=== PATIENT | male | born 1950 | race Caucasian/White ===

== ENCOUNTER 2016-08-06 14:12 | Emergency (ER) | payer MEDICARE, OTHER ==
[2016-08-01 11:36] VITALS: BMI 30.1
[~2016-08-06 14:12] MED LIST: LACTATED RINGERS 1,000 ML IV SCH; LIDOCAINE 1% 20 ML VIAL (10MG/ML) FOR IV START INTRADERMA PRN; hydrALAZINE HCL 20 MG/ML 1 ML VIAL IVP STA
--- NOTE | 2016-08-06 14:30 | ED ---
General Adult HPI - General Chief complaint: Recheck/Abnormal Lab/Rx Time Seen by Provider: 08/06/16 14:18 Source: patient, RN notes reviewed Mode of arrival: wheelchair Limitations: no limitations - History of Present Illness Initial comments: 66-year-old male present emergency Department from outpatient surgery for hypertension. Patient was scheduled for Clostridium difficile the by Dr. Gage today but found to have a blood pressure 220/100. Patient states that he does not take any medication for blood pressure until he does not see his primary care physician on it regular. States on his last visit his blood pressure was 170/90 discussed medication and watch. Patient has no complaints at this time. Patient denies chest pain, shortness breath, headache, dizziness , nausea vomiting diarrhea constipation. Patient did take the prep yesterday which tolerated well for his colonoscopy and has no complaints today. Patient does admit to marijuana use, alcohol use. - Related Data Previous Rx's Medication Instructions Recorded Lisinopril [Zestril] 10 mg PO DAILY #14 tab 08/06/16 Allergies Allergy/AdvReac Type Severity Reaction Status Date / Time No Known Allergies Allergy Verified 08/06/16 14:20 Review of Systems ROS Statement: Those systems with pertinent positive or pertinent negative responses have been documented in the HPI. ROS Other: All systems not noted in ROS Statement are negative. Past Medical History Past Medical History: Cancer History of Any Multi-Drug Resistant Organisms: None Reported Past Surgical History: Joint Replacement Additional Past Surgical History / Comment(s): LT TKA. SKIN CANCER REMOVED FROM NOSE. SPLEENECTOMY. COLONOSCOPY Past Anesthesia/Blood Transfusion Reactions: No Reported Reaction Past Psychological History: No Psychological Hx Reported Smoking Status: Former smoker Past Alcohol Use History: Daily Additional Past Alcohol Use History / Comment(s): 1974 Past Drug Use History: Marijuana Additional Drug Use History / Comment(s): USES MARIJUANA 3 TIMES WEEKLY - Past Family History Father Family Medical History: Cancer Brother(s) Family Medical History: Cancer General Exam Limitations: no limitations General appearance: alert, in no apparent distress Head exam: Present: atraumatic, normocephalic, normal inspection Neck exam: Present: normal inspection, full ROM. Absent: tenderness, meningismus, lymphadenopathy Respiratory exam: Present: normal lung sounds bilaterally. Absent: respiratory distress, wheezes, rales, rhonchi, stridor Cardiovascular Exam: Present: regular rate, normal rhythm, normal heart sounds. Absent: systolic murmur, diastolic murmur, rubs, gallop, clicks GI/Abdominal exam: Present: soft, normal bowel sounds. Absent: distended, tenderness, guarding, rebound, rigid Neurological exam: Present: alert, oriented X3, CN II-XII intact Skin exam: Present: warm, dry, intact, normal color. Absent: rash Course Vital Signs 08/06/16 08/06/16 08/06/16 13:19 13:26 13:42 Temperature 97.6 F 97.6 F Pulse Rate Pulse Rate [ 82 82 82 Pulse Oximetery ] Respiratory 18 18 18 Rate Blood Pressure Blood Pressure 217/117 217/117 199/102 [Right Arm] O2 Sat by Pulse 97 97 95 Oximetry 08/06/16 08/06/16 08/06/16 13:55 14:16 15:07 Temperature 98.3 F Pulse Rate 81 86 Pulse Rate [ 79 Pulse Oximetery ] Respiratory 18 18 16 Rate Blood Pressure 203/92 182/99 Blood Pressure 173/89 [Right Arm] O2 Sat by Pulse 97 95 95 Oximetry 08/06/16 08/06/16 15:18 15:38 Temperature Pulse Rate 84 92 Pulse Rate [ Pulse Oximetery ] Respiratory 18 18 Rate Blood Pressure 173/93 165/83 Blood Pressure [Right Arm] O2 Sat by Pulse 95 98 Oximetry EKG Findings - EKG Comments: EKG Findings:: EKG performed at 14:22 normal sinus rhythm with a rate of 87. IL interval 186, QS duration 94 QT/QTC 392/471 Medical Decision Making - Medical Decision Making 66-year-old male presented from outpatient for hypertension. Patient's blood pressure is improved this time. Patient was started on lisinopril 10 mg. Patient follow-up with Dr. Crockett in one to 2 days. Return parameters were discussed. Patient my blood pressure at home. - Lab Data Result diagrams: 08/06/16 14:20 08/06/16 14:20 Lab Results 08/06/16 08/06/16 08/06/16 Range/Units 14:20 14:20 14:20 WBC 8.3 (3.8-10.6) k/uL RBC 5.35 (4.30-5.90) m/uL Hgb 17.8 H (13.0-17.5) gm/dL Hct 53.1 H (39.0-53.0) % MCV 99.1 (80.0-100.0) fL MCH 33.2 (25.0-35.0) pg MCHC 33.5 (31.0-37.0) g/dL RDW 13.1 (11.5-15.5) % Plt Count 176 (150-450) k/uL Neutrophils % (Manual) 80.0 % Lymphocytes % (Manual) 9.0 % Monocytes % (Manual) 9.0 % Eosinophils % (Manual) 2.0 % Neutrophils # (Manual) 6.6 (1.3-7.7) k/uL Lymphocytes # (Manual) 0.7 L (1.0-4.8) k/uL Monocytes # (Manual) 0.7 (0-1.0) k/uL Eosinophils # (Manual) 0.2 (0-0.7) k/uL Nucleated RBCs 0 (0-0) /100 WBC RBC Morphology Normal Sodium 138 (137-145) mmol/L Potassium 4.3 (3.5-5.1) mmol/L Chloride 99 (98-107) mmol/L Carbon Dioxide 25 (22-30) mmol/L Anion Gap 14 mmol/L BUN 19 (9-20) mg/dL Creatinine 0.83 (0.66-1.25) mg/dL Est GFR (MDRD) Af Amer >60 (>60 ml/min/1.73 sqM) Est GFR (MDRD) Non-Af >60 (>60 ml/min/1.73 sqM) Glucose 102 H (74-99) mg/dL Calcium 9.6 (8.4-10.2) mg/dL Total Bilirubin 2.2 H (0.2-1.3) mg/dL AST 56 (17-59) U/L ALT 58 (21-72) U/L Alkaline Phosphatase 64 (38-126) U/L Troponin I <0.012 (0.000-0.034) ng/mL Total Protein 7.8 (6.3-8.2) g/dL Albumin 4.1 (3.5-5.0) g/dL Lipase (23-300) U/L 08/06/16 Range/Units 14:20 WBC (3.8-10.6) k/uL RBC (4.30-5.90) m/uL Hgb (13.0-17.5) gm/dL Hct (39.0-53.0) % MCV (80.0-100.0) fL MCH (25.0-35.0) pg MCHC (31.0-37.0) g/dL RDW (11.5-15.5) % Plt Count (150-450) k/uL Neutrophils % (Manual) % Lymphocytes % (Manual) % Monocytes % (Manual) % Eosinophils % (Manual) % Neutrophils # (Manual) (1.3-7.7) k/uL Lymphocytes # (Manual) (1.0-4.8) k/uL Monocytes # (Manual) (0-1.0) k/uL Eosinophils # (Manual) (0-0.7) k/uL Nucleated RBCs (0-0) /100 WBC RBC Morphology Sodium (137-145) mmol/L Potassium (3.5-5.1) mmol/L Chloride (98-107) mmol/L Carbon Dioxide (22-30) mmol/L Anion Gap mmol/L BUN (9-20) mg/dL Creatinine (0.66-1.25) mg/dL Est GFR (MDRD) Af Amer (>60 ml/min/1.73 sqM) Est GFR (MDRD) Non-Af (>60 ml/min/1.73 sqM) Glucose (74-99) mg/dL Calcium (8.4-10.2) mg/dL Total Bilirubin (0.2-1.3) mg/dL AST (17-59) U/L ALT (21-72) U/L Alkaline Phosphatase (38-126) U/L Troponin I (0.000-0.034) ng/mL Total Protein (6.3-8.2) g/dL Albumin (3.5-5.0) g/dL Lipase 22 L (23-300) U/L Disposition Clinical Impression: Hypertension Disposition: HOME SELF-CARE Condition: Stable Instructions: Hypertension (ED) Additional Instructions: Follow-up with primary care physician for recheck.Please return to the Emergency Department if symptoms worsen or any other concerns. Prescriptions: Lisinopril [Zestril] 10 mg PO DAILY #14 tab Time of Disposition: 15:42
[2016-08-06 14:42] LABS: Aty Lym Flag Slight; CH 33.6; CHCM 34.1; HCT 53.1 % (39.0-53.0); HDW 2.29; HGB 17.8 gm/dL (13.0-17.5); MCH 33.2 pg (25.0-35.0); MCHC 33.5 g/dL (31.0-37.0); MCV 99.1 fL (80.0-100.0); RBC 5.35 m/uL (4.30-5.90); RDW 13.1 % (11.5-15.5); WBC 8.3 k/uL (3.8-10.6); WBC (Perox) 8.66
[2016-08-06 14:44] LABS: ALT 58 U/L (21-72); AST 56 U/L (17-59); Alkaline Phosphatase 64 U/L (38-126); Anion Gap 14 mmol/L; Blood Urea Nitrogen 19 mg/dL (9-20); Calcium 9.6 mg/dL (8.4-10.2); Carbon Dioxide 25 mmol/L (22-30); Chloride 99 mmol/L (98-107); Glucose 102 mg/dL (74-99); Non-African American GFR(MDRD) >60 (>60 ml/min/1.73 sqM); Potassium 4.3 mmol/L (3.5-5.1); Sodium 138 mmol/L (137-145); Total Bilirubin 2.2 mg/dL (0.2-1.3); Total Protein 7.8 g/dL (6.3-8.2)
[2016-08-06] MEDS ORDERED: hydrALAZINE HCL 20 MG/ML 1 ML VIAL IVP STA (14:56)
[2016-08-06] MEDS ORDERED: LISINOPRIL 10 MG TAB PO STA (14:57)
[2016-08-06 15:01] LABS: Add Differential Manual Differential
[2016-08-06 15:24] LABS: Nucleated Red Blood Cells 0 /100 WBC (0-0); Total Cells Counted 100
[2016-08-06 15:25] LABS: RBC Morphology Normal
--- NOTE | 2016-08-06 15:53 | XR ---
EXAMINATION TYPE: XR chest 1V DATE OF EXAM: 08/06/2016 2:54 PM COMPARISON: NONE HISTORY: Hypertension TECHNIQUE: Single frontal view of the chest is obtained. FINDINGS: There is no focal air space opacity, pleural effusion, or pneumothorax seen. The cardiac silhouette size is within normal limits. There are overlying cardiac leads. The osseous structures a re intact. IMPRESSION: No acute process.
[2016-08-06 16:00] VITALS: BP 160/80; PULSE 93; RESP 16; TEMP 97.7
== END 2016-08-06 15:59 | disposition home or self-care (01) ==
LOC: EC 14:12
DX: I10 Essential (primary) hypertension (principal); Z87.891 Personal history of nicotine dependence
CPT/HCPCS: 99284; 96374; 96376; 96361 ×2; 36415; 93005; 80053; 83690; 84484; 85025; 71010; J0360

== ENCOUNTER 2017-10-01 07:31 | Day surgery (SDC) | payer MEDICARE ==
[2017-09-25 12:54] VITALS: BMI 31.0
[~2017-10-01 07:31] MED LIST changes: +DEXAMETHASONE SOD PHOSPHATE 10 MG/ML 1 ML VIAL IV ONE; +DEXAMETHASONE SOD PHOSPHATE 4 MG/ML 1 ML VIAL IV ONE; +FAMOTIDINE 20 MG/2 ML VIAL IV ONE; -LIDOCAINE 1% 20 ML VIAL (10MG/ML) FOR IV START INTRADERMA PRN; +MIDAZOLAM 2 MG/2 ML VIAL IV PRN; +ONDANSETRON 4 MG/2 ML VIAL IVP ONE; +ceFAZolin IN SWFI 2 GM/20 ML SYRINGE IVP ONE; +fentaNYL (PF) 50 MCG/ML 2 ML AMP IV PRN; -hydrALAZINE HCL 20 MG/ML 1 ML VIAL IVP STA
[2017-10-01] MEDS ORDERED: LIDOCAINE 1% 20 ML VIAL (10MG/ML) FOR IV START INTRADERMA ONE (08:05)
[2017-10-01] MEDS ORDERED: LIDOCAINE 1% INJ 10MG/ML (20 ML MDV) ONE (08:49)
[2017-10-01] MEDS ORDERED: fentaNYL (PF) 50 MCG/ML 2 ML AMP ONE (08:49)
[2017-10-01] MEDS ORDERED: SODIUM CHLORIDE 0.9% (PF) 10 ML VIAL ONE (08:49)
[2017-10-01] MEDS ORDERED: PROPOFOL 10 MG/ML 20 ML VIAL IV ONE (08:49)
[2017-10-01] MEDS ORDERED: ePHEDrine SULFATE/0.9% NACL/PF 50 MG/5 ML SYRINGE IV ONE (08:49)
[2017-10-01] MEDS ORDERED: GLYCOPYRROLATE 0.2 MG/ML 2 ML VIAL ONE (08:49)
[2017-10-01] MEDS ORDERED: MIDAZOLAM 2 MG/2 ML VIAL ONE (08:49)
[2017-10-01] MEDS ORDERED: LIDOCAINE 1%-EPI 1:100,000 30 ML VIAL SQ ONE (08:49)
[2017-10-01 10:58] VITALS: TEMP 96.9
--- NOTE | 2017-10-01 11:05 | P.OP ---
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 A wider resection was recommended. All risks, benefits, and alternative therapies were discussed in detail. Consent was obtained and all questions were answered. Operative Findings: Frozen section analysis showed that all margins are negative for tumor including the deep margin Description of Procedure: This patient was taken to the operative room and placed in the supine position. A general inhalation anesthetic was administered to the patient by mask and subsequently intubated with a cuffed endotracheal tube by the department of anesthesia with a functioning IV line in place. Patient was monitored throughout the entire case by the department of anesthesia. The face was sterilely prepped and draped in usual fashion and the lesion was marked and excised after anesthetization with a 15 blade delicate plastic scissors and a Brown-Adson forceps and sent for frozen section analysis with marking sutures present. All margins came back negative for tumor. We then developed a superiorly based bilobed flap. We rotated the skin and muscle into position and close the defect with 4-0 Monocryl deeply and 5-0 Prolene superficially. There is a secondary defect measuring 4.2 x 4.2 cm the original defect measured 2.1 x 2.1 cm. The bilobed flap was placed into position and sutured everything went well. The nose was taped and casted in the usual fashion and follow-up will be in the office in 1 week.
[2017-10-01 12:36] VITALS: BP 158/91; PULSE 69; RESP 16
== END 2017-10-01 12:41 | disposition home or self-care (01) ==
LOC: OR 07:31
PROVIDERS: ATTEND Otolaryngology
DX: C44.311 Basal cell carcinoma of skin of nose (principal); I10 Essential (primary) hypertension; Z79.891 Long term (current) use of opiate analgesic; Z79.52 Long term (current) use of systemic steroids; Z79.899 Other long term (current) drug therapy
CPT/HCPCS: 14061; 88305; 88331; 88332; J2250; J1100; J2405; J2001; J3010; J2704; J0690